=== PATIENT | male | born 1950 | race Caucasian/White ===

== ENCOUNTER 2016-08-13 13:57 | Day surgery (SDC) | payer MEDICARE ==
[~2016-08-13] VITALS: Ht 172.7 cm; Wt 73.0 kg
[~2016-08-13 13:57] MED LIST: 0.9% Sodium Chloride 1,000 ML IV SCH; ALBU8.5H2 INHALATION; ASPI325T32 PO; FLAX100038 PO; HYDR25SU31 RC; Sodium Chloride LOK Flush 10 mL Syringe IV PRN; fentaNYL-PF 50 mCg/mL 2 mL Inj IVPUSH PRN
[2016-08-13 14:24] VITALS: BP 162/129; PULSE 84; RESP 16; O2SAT 98
--- NOTE | 2016-08-13 15:48 | PCM.ENDEGD ---
EGD Date of Service: Aug 13, 2016 Physician César Amado MD Pre Procedure Diagnosis: Abdominal pain Post Procedure Dx & Findings: Gastritis Procedure Esophagogastroduodenoscopy PROCEDURE IN DETAIL: After proper sedation, Olympus video endoscope was inserted into patient's mouth and esophagus was successfully intubated. Scope introduced esophagus. Esophagus showed normal shiny whitish mucosa consistent with squamous cell component. Z line was intact at 45 cm from the incisors. Stomach further events to the stomach. In the antrum, there was some redness and edema consistent with gastritis. Biopsies obtained.. Cardia fundus body antrum pylorus were all visualized. Retroflexion was done. Stomach was easily inflated and deflatable using air. Scope further events to the distal duodenum. Duodenum revealed normal villous structures with normal appearing folds without any mass ulcer erosion. Impression Gastritis Recommendation Await biopsy Presedation Assessment Risks and Benefits Informed consent was obtained from the patient after all risks and benefits including but not limited to drug reaction, infection, pain, bleeding, perforation, as well as alternatives were discussed. Patient monitoring Continuous pulse oximetry, cardiac monitoring, blood pressure monitoring, IV access, and oxygen at 2L per nasal cannula. Periprocedural Fentanyl: Fentanyl 125mcg Incrementally Midazolam: Midazolam 6mg Incrementally Complications There were no periprocedural complications identified. Post Procedure Plan Post Procedure Recommendations 1. Restrict activities today. 2. Resume normal activities in the morning. 3. Resume medications. 4. GERD behavioral modification: - Avoid fatty, acidic, spicy, large meals - Do not lie down after meals - Do not eat or drink anything for at least 2 1/2 hours before going to bed at night - Discontinue tobacco and alcohol - Decrease or avoid caffeine - Avoid chocolate and mints - Decrease weight - Avoid aspirin and non steroidal anti-inflammatory agents (NSAID) such as Aleve, Advil, Mobic, Naproxen, Ibuprofen, etc 5. Add proton pump inhibitor. Take 30 minutes before 1st meal of the day. 6. Patient informed of normal post procedure side effects as bloating, drowsiness, blood streaking in the stool 7. If gastric biopsy reveal H.pylori, continue with appropriate treatment 8. If small bowel biopsy reveals celiac, continue with appropriate treatment 9. Please don't hesitate to call me with any questions César Amado MD Aug 13, 2016 15:48
[2016-08-13 15:49] VITALS: BP 124/81; PULSE 69; RESP 16; O2SAT 99
--- NOTE | 2016-08-13 15:50 | PCM.ENDCOL ---
Colonoscopy Date of Service: Aug 13, 2016 Physician César Amado MD Pre Procedure Diagnosis: Screening Post Procedure Dx & Findings: Polyps hemorrhoids and diverticula Procedure Colonoscopy PROCEDURE IN DETAIL: Prep adequate Withdrawal time 12 minutes After unremarkable rectal examination the Olympus video colonoscope was inserted patient's anal canal and was advanced to cecum. Landmarks were identified including the ileocecal valve and appendiceal orifice. Scope was withdrawn systematically. Visualized colonic mucosa showed healthy shiny mucosa with normal healthy-appearing vasculature. In the cecum, there was a 1 mm polyp which was removed completely using cold forceps. In the ascending colon, there were 3 polyps. One of them was 3 mm in size which was removed completely using cold snare and the other two were 1 mm in size which were removed completely using cold forceps. In the transverse colon, 2 polyps were noted. One of them was about 6 mm in size the other one was about 3 mm in size. These were both removed completely using cold snare. Patient had multiple diverticuli small to large in the sigmoid colon. Patient also had isolated diverticuli all the way up to the ascending colon. In the rectum retroflexion was done which showed hemorrhoids. Anal canal was inspected carefully on the way out and hemorrhoids noted. Impression Polyp times 6 status post complete removal Diverticuli Hemorrhoids Recommendation Repeat colonoscopy 3 years Diverticular diet Presedation Assessment Risks and Benefits Informed consent was obtained from the patient after all risks and benefits including but not limited to drug reaction, infection, pain, bleeding, perforation, as well as alternatives were discussed. Patient monitoring Continuous pulse oximetry, cardiac monitoring, blood pressure monitoring, IV access, and oxygen at 2L per nasal cannula. Complications There were no periprocedural complications identified. Post Procedure Plan Post Procedure Recommendations 1. Restrict activities today. 2. Resume normal activities in the morning. 3. Resume medications. 4. Patient informed of normal post procedure side effects as bloating, drowsiness, blood streaking in the stool. 5. average risk CRCS. If colon polyps come back as: -Hyperplastic- can repeat colonoscopy in 10 years -Tubular adenoma- repeat colonoscopy in 5 years -Tubulovillous/villous adenoma- repeat colonoscopy in 3 years -If any dysplasia- return to clinic as soon as possible 6. Please don't hesitate to call me with any questions. César Amado MD Aug 13, 2016 15:50
[2016-08-13 15:59] VITALS: BP 112/73; PULSE 66; RESP 16; O2SAT 95
[2016-08-13 16:09] VITALS: BP 111/70; PULSE 70; RESP 16; O2SAT 93
[2016-08-13 16:19] VITALS: BP 116/80; PULSE 62; RESP 16; O2SAT 96
--- NOTE | 2016-08-16 10:42 | PATH ---
SURGICAL PATHOLOGY Attending Physician:César Amado M.D. CASE STATUS: Signed Out PATIENT NAME: DUY ALVARADO JR PID: [id number] : 1950 DATE COLLECTED:08/13/2016 00:00 SPECIMEN: 1: Gastric, Biopsy 2: Colon, Biopsy 3: Colon, Biopsy 4: Colon, Biopsy CLINICAL HISTORY: 1). GASTRIC BIOPSIES 2). TRANSVERSE COLON POLYPS 3). CECAL POLYP 4). ASCENDING COLON POLYPS X3 FINAL DIAGNOSIS: 1.GASTRIC BIOPSIES: DIFFUSE MODERATE CHRONIC GASTRITIS INVOLVING ANTRAL AND FUNDIC MUCOSA. Immunohistochemistry for Helicobacter pending, to be reported by addendum. Negative for intestinal metaplasia. Negative for dysplasia and malignancy. 2.TRANSVERSE COLON POLYPS: TUBULAR ADENOMA. 3.CECAL POLYP: TUBULAR ADENOMA. 4.ASCENDING COLON POLYPS: TUBULAR ADENOMA INVOLVING THREE BIOPSY FRAGMENTS. ICD10 K29.70 GROSS DESCRIPTION: The specimen is received in four formalin filled containers labeled with the patient's name. 1). The specimen is sublabeled "gastric" and consists of 3 portions of tissue which aggregate to 0.3 x 0.3 x 0.3 CM. The specimen is entirely submitted in cassette 1A. 2). The specimen is sublabeled "transverse colon polyp" and consists of a 0.7 x 0.5 x 0.4 CM portion of tissue which is entirely submitted in cassette 2A. 3). The specimen is sublabeled "cecal polyp" and consists of a 0.2 x 0.2 x 0.2 CM portion of tissue which is entirely submitted in cassette 3A. 4). The specimen is sublabeled "ascending colon polyp" and consists of 5 portions of tissue which aggregate to 0.5 x 0.5 x 0.3 CM. The specimen is entirely submitted in cassette 4A. 08/14/2016 [facility] MICRO DESCRIPTION: See diagnosis. 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 This test was developed and its performance characteristics determined by [employer]. It has not been cleared or approved by the [place]. Food and Drug Administration. The FDA has determined that such clearance or approval is not necessary. This test is used for clinical purposes. It should not be regarded as investigational or for research. Electronically Signed Out Gordo Kennedy MD Electronically Signed Out Gordo Kennedy MD [facility] Pathology [facility] [address], [place] [address] Technical component performed at [facility], [address], [place], [address]
== END 2016-08-13 23:59 | disposition home or self-care (01) ==
LOC: END 13:57 → EDUNIT# 15:00 → END 23:59
PROVIDERS: ATTEND Internal Medicine
DX: Z12.11 Encounter for screening for malignant neoplasm of colon (principal); D12.2 Benign neoplasm of ascending colon; D12.0 Benign neoplasm of cecum; D12.3 Benign neoplasm of transverse colon; K57.30 Diverticulosis of large intestine without perforation or abscess without bleeding; K64.9 Unspecified hemorrhoids; K29.50 Unspecified chronic gastritis without bleeding
CPT/HCPCS: 43239; 45380; 45385; 99153; G0500; J7030